=== PATIENT | female | born 1965 | race African-American/Black ===

== ENCOUNTER 2017-09-11 18:52 | Emergency (ER) | payer BC ==
--- NOTE | 2017-09-11 19:56 | RAD ---
LEFT WRIST THREE VIEWS 09/11/17 HISTORY: Fall. Left wrist injury. FINDINGS: Comminuted impacted distal left radial fracture is present with sagittally oriented intra-articular c omponent at the level of the scapholunate joint. There is marked resultant dorsal tilt. Inclination i s maintained. Mild distraction of an ulnar styloid avulsion is apparent. IMPRESSION: Comminuted intra-articular distal left radial fracture with dorsal tilt. POS: [facility]
[2017-09-11] MEDS ORDERED: Ketorolac Tromethamine 30 MG/ML VIAL ONE (20:06)
== END 2017-09-11 21:42 | disposition home or self-care (01) ==
LOC: ERS 18:52
DX: S52.572A Other intraarticular fracture of lower end of left radius, initial encounter for closed fracture (principal); S52.612A Displaced fracture of left ulna styloid process, initial encounter for closed fracture; F41.9 Anxiety disorder, unspecified; Z79.899 Other long term (current) drug therapy; V29.9XXA Motorcycle rider (driver) (passenger) injured in unspecified traffic accident, initial encounter
CPT/HCPCS: 29125; 96372; J1885

== ENCOUNTER 2018-11-27 05:02 | Emergency (ER) | payer BC ==
[2018-11-27] MEDS ORDERED: Ibuprofen 200 MG TAB ONE (06:16)
== END 2018-11-27 06:20 | disposition home or self-care (01) ==
LOC: ERS 05:02
DX: S16.1XXA Strain of muscle, fascia and tendon at neck level, initial encounter (principal); F41.9 Anxiety disorder, unspecified; I10 Essential (primary) hypertension; Z79.899 Other long term (current) drug therapy; X58.XXXA Exposure to other specified factors, initial encounter
CPT/HCPCS: 99283

== ENCOUNTER 2021-11-21 12:41 | Emergency (ER) | payer BC, SELFPAY | END 2021-11-21 13:30 | disposition home or self-care (01) | LOC: ERS 12:41 | DX: I10 Essential (primary) hypertension (principal); Z79.899 Other long term (current) drug therapy | CPT/HCPCS: 99281 ==